=== PATIENT | female | born 1985 | race Two or more races ===

== ENCOUNTER 2018-06-10 10:33 | Emergency (ER) | payer BC, MEDICAID ==
[~2018-06-10] VITALS: Ht 149.9 cm; Wt 45.0 kg
[~2018-06-10 10:33] MED LIST: CEPH250C92 PO; CLIN150C2 PO; CLON-528 PO; HYDR-4353 PO; IBUP-1985 PO; IBUP-1986 PO; MAGN296S29 PO; MOT200T PO; RANI150C4 PO; [UNRECOGNIZED DRUG - CODE] PO
[2018-06-10 10:58] VITALS: BP 104/68
[2018-06-10] MEDS ORDERED: TRAM50TA2 PO (14:45)
[2018-06-10] MEDS ORDERED: CLIN300C3 PO (14:46)
== END 2018-06-10 11:13 | disposition left against medical advice (07) ==
LOC: ER 10:33
DX: L02.413 Cutaneous abscess of right upper limb (principal); Z53.21 Procedure and treatment not carried out due to patient leaving prior to being seen by health care provider

== ENCOUNTER 2018-06-10 13:24 | Emergency (ER) | payer BC, MEDICAID ==
[~2018-06-10] VITALS: Ht 149.9 cm; Wt 45.0 kg
[2018-06-10 13:34] VITALS: BP 96/68
[2018-06-10] MEDS ORDERED: TRAM50TA2 PO (14:45)
[2018-06-10] MEDS ORDERED: traMADol 50MG tablet PO ONE (14:45)
[2018-06-10] MEDS ORDERED: CLIN300C3 PO (14:46)
[2018-06-10] MEDS ORDERED: clindamycin phosphate 150mg/ml inj. IM ONE (14:50)
== END 2018-06-10 15:30 | disposition home or self-care (01) ==
LOC: ER 13:25
DX: L02.413 Cutaneous abscess of right upper limb (principal); G89.29 Other chronic pain; F12.90 Cannabis use, unspecified, uncomplicated; F15.90 Other stimulant use, unspecified, uncomplicated; Z79.899 Other long term (current) drug therapy; Z56.0 Unemployment, unspecified
CPT/HCPCS: 96372; 99283; J3490

== ENCOUNTER 2020-03-12 14:45 | Emergency (ER) | payer MEDICAID ==
[~2020-03-12] VITALS: Ht 149.9 cm; Wt 54.5 kg
[~2020-03-12 14:45] MED LIST changes: +ALBU8.5H8 INH; -CEPH250C92 PO; -CLIN150C2 PO; -CLON-528 PO; -HYDR-4353 PO; -IBUP-1985 PO; -IBUP-1986 PO; +LACT1CAP26 PO; +LEVO750T46 PO; -MAGN296S29 PO; -MOT200T PO; -RANI150C4 PO; -[UNRECOGNIZED DRUG - CODE] PO
[2020-03-12] MEDS ORDERED: LIDOcaine 1% W/epiNEPHrine 1:200,000 10ml vial IJ ONE (15:55)
[2020-03-12] MEDS ORDERED: LIDOcaine 1% w/epiNEPHrine 1:200,000 30ml vial IJ ONE (16:05)
[2020-03-12] MEDS ORDERED: TETanus/Pertussis (Acell)/Diphther VAC/PF (Tdap-Adult) 0.5ml syringe IMVAC ONE (16:10)
[2020-03-12] MEDS ORDERED: normal saline 1000ML IV soln IVB ONE (16:25)
[2020-03-12 17:06] LABS: BASOPHILS % (AUTO) 0.2 % (0-1); EOSINOPHILS # (AUTO) 0.1 X10'3 (0-0.9); EOSINOPHILS % (AUTO) 1.5 % (0-6); HEMATOCRIT 33.8 % (35.0-45.0); HEMOGLOBIN 11.5 g/dl (12.0-16.0); LYMPHOCYTES # (AUTO) 2.3 X10'3 (1.1-4.8); LYMPHOCYTES % (AUTO) 27.7 % (21-51); MEAN CORPUSCULAR HGB CONC 34.1 g/dL (33.0-36.5); MEAN PLATELET VOLUME 7.4 FL (7.4-10.4); MONOCYTES # (AUTO) 0.4 X10'3 (0-0.9); MONOCYTES % (AUTO) 4.9 % (2-12); NEUTROPHILS # (AUTO) 5.6 X10'3 (1.8-7.7); NEUTROPHILS % (AUTO) 65.7 % (42-75); PLATELET COUNT 484 X10'3 (140-440); RED BLOOD COUNT 3.84 X10'6 (4.20-5.60); RED CELL DISTRIBUTION WIDTH 12.9 % (11.5-14.5); WHITE BLOOD COUNT 8.4 X10'3 (4.5-11.0)
[2020-03-12 17:35] LABS: ALANINE AMINOTRANSFERASE 23 U/L (12-78); ALBUMIN/GLOBULIN RATIO 0.6 (1.1-1.5); ALKALINE PHOSPHATASE 101 IU/L (46-116); ANION GAP 10 (8-16); ASPARTATE AMINO TRANSFERASE 15 U/L (10-37); BILIRUBIN,TOTAL 0.3 MG/DL (0.1-1.0); BLOOD UREA NITROGEN 6 MG/DL (7-18); BUN/CREATININE RATIO 7.1 (6.6-38.0); CALCIUM 9.1 MG/DL (8.5-10.1); CHLORIDE 102 MMOL/L (99-107); CREATININE 0.84 MG/DL (0.40-0.90); GLUCOSE 117 MG/DL (70-104); SODIUM 137 MMOL/L (135-145); TOTAL CARBON DIOXIDE 24.9 MMOL/L (24-32); TOTAL PROTEIN 8.2 G/DL (6.4-8.2); eGFR 78 ML/MIN
[2020-03-12 17:37] LABS: POTASSIUM 2.9 MMOL/L (3.5-5.1)
[2020-03-12] MEDS ORDERED: cephalexin 500mg capsule PO ONE (18:05)
[2020-03-12] MEDS ORDERED: sulfamethoxazole/trimethoprim DS (800/160mg) tablet PO ONE (18:05)
[2020-03-12] MEDS ORDERED: POTASSIUM BICARB 20meq eff tab 20 MEQ TABLET.EFF PO ONE (18:10)
[2020-03-12] MEDS ORDERED: ondansetron 4mg rapidly disintigrating tab PO ONE (18:15)
[2020-03-12] MEDS ORDERED: CefTRIAXone 1000mg IM Kit (w/lidocaine diluent) IM ONE (18:15)
[2020-03-12] MEDS ORDERED: oxyCODONE SR 10mg (sust. release) tab PO ONE (18:15)
[2020-03-12] MEDS ORDERED: SULF1TAB49 PO (18:19)
[2020-03-12] MEDS ORDERED: CEPH500C5 PO (18:19)
[2020-03-12] MEDS ORDERED: POTA-84 PO (18:21)
[2020-03-12 18:56] VITALS: BP 103/67
== END 2020-03-12 18:57 | disposition home or self-care (01) ==
LOC: ER 14:46
DX: L02.512 Cutaneous abscess of left hand (principal); L02.413 Cutaneous abscess of right upper limb; G89.29 Other chronic pain; F41.9 Anxiety disorder, unspecified; F12.10 Cannabis abuse, uncomplicated; F15.10 Other stimulant abuse, uncomplicated; Z56.0 Unemployment, unspecified
CPT/HCPCS: 36415; 71045; 73090; 80053; 83605; 84145; 85025; 87040; 90471; 90715; 96372; 99284; J0696; J7030; 96361